=== PATIENT | female | born 1935 | race Caucasian/White ===

== ENCOUNTER 2016-07-27 15:19 | Outpatient (CLI) | payer MEDICARE, OTHER ==
[2016-07-27] MEDS ORDERED: GADOBUTROL 7.5 MMOL/7.5 ML VIAL IVP ONE (17:10)
== END 2016-07-27 15:20 | disposition home or self-care (01) ==
DX: H81.399 Other peripheral vertigo, unspecified ear (principal); R42 Dizziness and giddiness; H90.A21 Sensorineural hearing loss, unilateral, right ear, with restricted hearing on the contralateral side; R90.82 White matter disease, unspecified
CPT/HCPCS: 70543; A9585

== ENCOUNTER 2016-07-31 12:32 | Observation (INO) | payer MEDICARE, OTHER ==
[2016-07-31] MEDS ORDERED: IPRATROPIUM/ALBUTEROL 3 ML NEB INH STA (13:53)
[2016-07-31] MEDS ORDERED: AZITHROMYCIN 250 MG TABLET PO STA (13:54)
[2016-07-31] MEDS ORDERED: IPRATROPIUM/ALBUTEROL 3 ML NEB INH ONE (14:00)
[2016-07-31] MEDS ORDERED: AZITHROMYCIN 250 MG TABLET PO ONE (14:10)
[2016-07-31] MEDS ORDERED: PANTOPRAZOLE 40 MG VIAL IVP STA (17:22)
[2016-07-31] MEDS ORDERED: PANTOPRAZOLE 40 MG VIAL ONE (17:28)
[2016-07-31] MEDS ORDERED: HYDROcod/ACETAM 10 MG/325 MG TABLET PO PRN (20:15)
[2016-07-31] MEDS ORDERED: ONDANSETRON 4 MG/2 ML VIAL IVP PRN (20:15)
[2016-07-31] MEDS ORDERED: SODIUM CHLORIDE FLUSH 0.9% 10 ML SYRINGE IVP PRN (20:15)
[2016-07-31] MEDS ORDERED: HYDROcod/ACETAM 5/325 MG TABLET PO PRN (20:15)
[2016-07-31] MEDS ORDERED: ACETAMINOPHEN 325 MG TABLET PO PRN (20:15)
[2016-07-31] MEDS ORDERED: OSELTAMIVIR 75 MG CAPSULE PO SCH (21:00)
[2016-07-31] MEDS ORDERED: guaiFENesin/CODEINE 5 ML UDC PO PRN (21:20)
[2016-07-31] MEDS ORDERED: TEMAZEPAM 15 MG CAPSULE PO PRN (21:21)
[2016-07-31] MEDS: PANTOPRAZOLE 40 MG VIAL IVP SCH (21:26)
[2016-07-31] MEDS: SUCRALFATE 1 GM/10 ML UDC PO SCH (21:27)
[2016-07-31] MEDS: SODIUM CHLORIDE FLUSH 0.9% 10 ML SYRINGE IVP SCH (21:35)
[2016-08-01] MEDS: BENZOCAINE/MENTHOL LOZENGE MM PRN ×2 (00:33→04:08)
[2016-08-01] MEDS: SODIUM CHLORIDE FLUSH 0.9% 10 ML SYRINGE IVP SCH ×2 (05:52→13:55)
[2016-08-01] MEDS: SUCRALFATE 1 GM/10 ML UDC PO SCH ×2 (06:32→10:33)
[2016-08-01] MEDS ORDERED: FERROUS SULFATE 325 MG TABLET PO SCH (08:00)
[2016-08-01] MEDS: PANTOPRAZOLE 40 MG VIAL IVP SCH (08:20)
[2016-08-01] MEDS: SODIUM CHLORIDE 0.9% 1,000 ML IV SCH ×2 (08:31)
[2016-08-01] MEDS ORDERED: POLYETHYLENE GLYCOL 3350 17 GM PACKET PO SCH (09:00)
[2016-08-01] MEDS ORDERED: LEVOTHYROXINE 100 MCG TABLET PO SCH (09:00)
[2016-08-01] MEDS ORDERED: ALBUTEROL NEB 2.5 MG/3 ML INH PRN (14:43)
== END 2016-08-01 16:30 | disposition home health service (06) ==
PROC: 30233N1 Transfusion of Nonautologous Red Blood Cells into Peripheral Vein, Percutaneous Approach (ICD-10-PCS; principal; 2016-08-01)
DX: D50.9 Iron deficiency anemia, unspecified (principal); J10.1 Influenza due to other identified influenza virus with other respiratory manifestations; I10 Essential (primary) hypertension; E03.9 Hypothyroidism, unspecified; K21.9 Gastro-esophageal reflux disease without esophagitis; Z85.828 Personal history of other malignant neoplasm of skin; Z87.891 Personal history of nicotine dependence; Z66 Do not resuscitate; Z87.898 Personal history of other specified conditions
CPT/HCPCS: 36415; 36430; 71020; 80053; 82607; 82728; 82746; 83540; 83690; 84466; 85014; 85018; 85025; 85610; 85730; 86850; 86900; 86901; 86920; 87275; 87276; 94640; 94761; 96374; 96376; 99284; 99285; A9270; G0378; J7613; J7620; P9016

== ENCOUNTER 2016-08-06 10:05 | Outpatient (CLI) | payer MEDICARE, OTHER | END 2016-08-06 10:06 | disposition home or self-care (01) | DX: D64.9 Anemia, unspecified (principal) ==

== ENCOUNTER 2016-08-28 11:42 | Outpatient (CLI) | payer MEDICARE, OTHER | END 2016-08-28 11:43 | disposition home or self-care (01) | DX: D64.9 Anemia, unspecified (principal); E03.9 Hypothyroidism, unspecified ==

== ENCOUNTER 2016-10-15 08:00 | Outpatient (CLI) | payer MEDICARE, OTHER | END 2016-10-15 23:59 | DX: D64.9 Anemia, unspecified (principal); E03.9 Hypothyroidism, unspecified ==

== ENCOUNTER 2017-05-16 11:05 | Outpatient (CLI) | payer MEDICARE, OTHER | END 2017-05-16 11:06 | disposition EMS.NT | LOC: EMS 11:05 | PROVIDERS: ATTEND Surgery | DX: S99.911A Unspecified injury of right ankle, initial encounter (principal); X50.1XXA Overexertion from prolonged static or awkward postures, initial encounter; Y93.01 Activity, walking, marching and hiking; Y92.009 Unspecified place in unspecified non-institutional (private) residence as the place of occurrence of the external cause ==

== ENCOUNTER 2017-06-12 02:56 | Outpatient (CLI) | payer MEDICARE, OTHER ==
[2017-06-12 18:54] LABS: BASOPHILS # (AUTO) 0.1 10^3/uL (0.0-0.1); BASOPHILS % (AUTO) 0.7 %; EOSINOPHILS # (AUTO) 0.2 10^3/uL (0.0-0.7); EOSINOPHILS % (AUTO) 2.2 %; HCT - HEMATOCRIT 37.6 % (37.0-47.0); LYMPHOCYTES # (AUTO) 1.9 10^3/uL (1.5-3.5); LYMPHOCYTES % (AUTO) 17.5 %; MEAN CORPUSCULAR HEMOGLOBIN 29.4 pg (27.0-31.0); MEAN CORPUSCULAR HGB CONC 31.9 g/dL (32.0-36.0); MEAN CORPUSCULAR VOLUME 92.1 fL (81.0-99.0); MEAN PLATELET VOLUME 8.8 fL (7.9-10.8); MONOCYTES # (AUTO) 0.9 10^3/uL (0.0-1.0); MONOCYTES % (AUTO) 8.7 %; NEUTROPHILS # (AUTO) 7.6 10^3/uL (1.5-6.6); NEUTROPHILS % (AUTO) 70.9 %; RED BLOOD COUNT 4.09 10^6/uL (4.20-5.40); RED CELL DISTRIBUTION WIDTH 17.1 % (12.0-15.0); UNCORRECTED WHITE BLOOD COUNT 10.7 x10^3/uL; WHITE BLOOD COUNT 10.7 x10^3/uL (4.8-10.8)
[2017-06-12 19:34] LABS: IRON 163 ug/dL (28-170); TOTAL IRON BINDING CAPACITY 384 ug/dL (250-450); TRANSFERRIN 274 mg/dL (192-382)
== END 2017-06-12 02:57 | disposition home or self-care (01) ==
LOC: LAB.WCP 02:56
PROVIDERS: ATTEND Physician Assistant Medical
DX: D50.9 Iron deficiency anemia, unspecified (principal)
CPT/HCPCS: 36415; 82728; 83540; 84466; 85025

== ENCOUNTER 2018-06-19 23:34 | Outpatient (CLI) | payer MEDICARE, OTHER | END 2018-06-19 23:59 | disposition critical access hospital (66) | LOC: EMS 23:34 | PROVIDERS: ATTEND Surgery | DX: I46.9 Cardiac arrest, cause unspecified (principal) | CPT/HCPCS: A0425; A0433 ==

== ENCOUNTER 2018-06-20 00:34 | Emergency (ER) | payer MEDICARE, OTHER ==
[2018-06-20] MEDS ORDERED: EPINEPHrine ABBOJECT 1 MG/10 ML SYRINGE IVP ONE (00:35)
[2018-06-20] MEDS ORDERED: EPINEPHrine 1 MG/1 ML 30 ML MDV IVP STA (00:39)
[2018-06-20 00:48] VITALS: BP 0/0
--- NOTE | 2018-06-20 00:52 | ED Physician Documentation ---
PD HPI CPR - Stated complaint Stated Complaint: CPR - Chief complaint Chief Complaint: Critical Care - History obtained from History obtained from: EMS - History of Present Illness Timing - onset: How many minutes ago (approximately 45 minutes [employer]PER[employer]) Preceding symptoms: Unknown Contributing factors: No: CAD, ESRD, Diabetes, Terminal disease, Depressed / OD, Recent hospital/surgery Witnessed: Arrest not witnesssed EMS findings: Unresponsive, Apneic, Weak pulse Treatment [employer]: CPR, Defibrillated, Intubated, Epi, Amiodarone, IV - Additional information Additional information: Per medic report: approximately 45 minutes [employer], patient's was asleep next to patient in bed when he awoke to find patient had agonal breathing and was unresponsive. On medics' arrival, patient was unconscious and agonal breathing with faint pulse. They were preparing for RSI, not yet on residential monitor, when she lost pulses. They immediately put patient on monitor and found rhythm to be ventricular fibrillation. They delivered shock to defibrillate and started CPR. Subsequent rhythm check was asystole. Epinephrine given, CPR resumed. During subsequent resuscitation attempt, she had more episodes of ventricular fibrillation for which she received 2 more shocks, epinephrine, and amiodarone (300mg IV followed by 150mg IV). She received a total of 6 rounds of epinephrine in the field. After the 3rd shock, rhythm checks revealed PEA. Except for when medics first arrived on scene and detected a weak pulse, patient did not regain pulses during the entire resuscitative efforts in field. On arrival, resuscitative efforts have been ongoing for 40 minutes. She was intubated [employer]. Review of Systems Unable to obtain: Unresponsive PD PAST MEDICAL HISTORY - Past Medical History Cardiovascular: Hypertension Respiratory: None Endocrine/Autoimmune: HyPOthyroidism GI: Hemorrhoids : None Psych: None Musculoskeletal: Osteoarthritis Derm: None - Past Surgical History Past Surgical History: Yes General: Cholecystectomy Ortho: Rotator cuff repair /[employer] DEVELOPER: Hysterectomy HEENT: Tonsil/Adenoidectomy Derm: Skin cancer surgery - Present Medications Home Medications: Ambulatory Orders Medication Instructions Recorded Confirmed Levothyroxine Sodium 100 mcg PO DAILY 12/23/13 05/16/17 Ascorbic Acid [Vitamin C] 500 mg PO BID 02/23/16 05/16/17 Ferrous Sulfate 324 mg PO BID 02/23/16 05/16/17 Cholecalciferol (Vitamin D3) 5,000 units PO DAILY 08/01/16 05/16/17 [Vitamin D3] - Allergies Allergies/Adverse Reactions: Allergies Allergy/AdvReac Type Severity Reaction Status Date / Time No Known Drug Allergies Allergy Unverified 05/16/17 12:19 - Social History Does the pt smoke?: No Smoking Status: Never smoker Does the pt drink ETOH?: Yes Does the pt have substance abuse?: No - Immunizations Immunizations are current?: Yes PD ED PE NORMAL - Vitals Vital signs reviewed: Yes PD ED PE EXPANDED - General General: Unresponsive, Other (intubated. CPR ongoing) - HEENT HEENT: Atraumatic - Cardiac Cardiac: Other (palpable pulse only with CPR: pulseless during pulse/rhythm checks) - Respiratory Respiratory: Other (equal breath sounds bilaterally with bag-valve respirations (no spontaneous respirations)) - Abdomen Abdomen: No: Distended, Pulsatile - Derm Derm: Pale (central palor with extremity cyanosis), Cyanotic (extremities) - GCS Eye Opening: None Motor: None Verbal: None Total: 3 Results - Vitals Vitals: Vital Signs - 24 hr 06/20/18 00:36 Temperature 35.9 C L Heart Rate 0 L Blood Pressure 0/0 L O2 Saturation 98 Oxygen O2 Source Ambu bag PD MEDICAL DECISION MAKING - ED course Complexity details: considered differential, d/w family ED course: I was present in ED room 3 with ED team as patient was brought in by medics. Patient has not had pulses (without CPR)/spontaneous perfusing rhythm during the 40 minutes of resuscitative efforts [employer]. She has received 3 shocks for v. fib and 6 rounds of IV epinephrine en route, as well as amiodraone (300mg followed by 150mg). CPR continued in ED. On pulse/rhythm check, she was in PEA and had no palpable pulses. Epinephrine 1mg IV administered and CPR resumed. On subsequent pulse/rhythm check, she was again in PEA (20 BPM on monitor without palpable pulses). I reviewed the measures taken thus far with the ED code team and there was consensus that further attempts at resuscitation would be futile. I pronounced the patient at 12:44 AM. No spontaneous respirations, no heart sounds, no palpable pulses, no response to painful stimuli. Departure - Departure Disposition: 20 Clinical Impression: , Cardiopulmonary arrest Discharge Date/Time: 06/20/18 00:53
[2018-06-20] MEDS ORDERED: SODIUM CHLORIDE 0.9% 1,000 ML IV ONE (02:11)
== END 2018-06-20 00:53 | disposition expired ==
LOC: EDUNIT# → EDBD → ED 00:34
DX: I46.9 Cardiac arrest, cause unspecified (principal); I10 Essential (primary) hypertension
CPT/HCPCS: 92950; 99284; 99285